=== PATIENT | male | born 1945 | race Caucasian/White ===

== ENCOUNTER → 2018-05-12 10:45 | Outpatient (CLI) | payer OTHER, SELFPAY ==
--- NOTE | 2018-05-12 14:54 | P.PCN_ITS ---
Cardiac Stress Test Report Referral & Results Date Patient Seen: 05/12/18 Requesting provider: Aydee Ibrahim Indication: Atrial fibrillation Rest ECG: Unremarkable, sinus rhythm Procedure Note: After both written and verbal informed consent the patient had an IV started by the diagnostic imaging RN and then was hooked up to the treadmill monitoring system. The patient was placed on the treadmill at 1 mile an hour with no elevation and was then injected with the Zabrina scan material. The Cardiolite was then immediately administered. The patient spent an additional 2-3 minutes on the treadmill before being returned to the [facility] in the supine position. The patient had a normal response to all infused materials. Patient had some mild chest tightness and dyspnea with the infusion of Lexiscan material that improved slightly before the end of the procedure Patient did achieve a near target heart rate despite minimal activity. There are no ST-T segment changes. No dysrhythmias patient remained in a sinus rhythm throughout Impression: No evidence of ischemia Normal response to infuse materials Perfusion imaging to be reported separately Please note: Actual ECG tracings can be found in the PACS system.
--- NOTE | 2018-05-14 09:09 | DI.NM.S_ITS ---
DATE OF SERVICE: 05/12/2018 PROCEDURE: Pharmacologic perfusion study. INDICATIONS: Atrial fibrillation with underlying coronary artery disease. RADIOPHARMACEUTICAL: 25.3 mCi of technetium-99 Myoview IV was injected at stress, and 12.5 mCi of technetium-99 Myoview IV was injected at rest. It was 1 - day protocol. CARDIAC STRESS: The patient underwent IV Lexiscan perfusion study as per standard protocol. The patient remained hemodynamically stable. [place] some chest tightness during Lexiscan injection. Baseline EKG revealed narrow QRS tachycardia and rate about 114. Does not appear to be atrial fibrillation or atrial flutter. Likely SVT. During stress, there was no obvious convincing ischemic changes. There were no new significant arrhythmias. RAW DATA: There is an increase of diaphragmatic activity and increased soft tissue shadow near basal inferolateral wall. GATED STUDY: Resting LV ejection fraction was 48%, and stress LV ejection fraction was 54%. During stress, I don't see any obvious wall motion abnormalities. No transient ischemic dilatation. TID ratio is 0.83, which is within normal limits. Resting end-diastolic volume 125 mL. Lung/heart ratio is 0.26, which is within normal limits. MYOCARDIAL PERFUSION: Stress supine images revealed small sized mildly decreased perfusion of the distal anterior wall as well as small size severely decreased perfusion of basal inferolateral wall. During resting supine, there was moderate sized moderate to severely decreased perfusion of the basal inferolateral wall extending in to the base to mid inferior wall as well as distal anterior wall. During prone images, the majority of the perfusion defect got improved, except basal inferolateral wall defect, which remained there. No obvious reversible ischemia. CONCLUSION: 1. No obvious reversible ischemia. 2. The patient has predominantly small sized severe perfusion defect involving the basal inferolateral wall. During stress gating, the wall is moving well. There was soft tissue shadow seen near the basal inferolateral border of the heart. There is a possibility of persistent tissue attenuation artifact; however, one cannot rule out the possibility of small basal inferolateral infarction. Clinical correlation is recommended. TITUS CONTRERAS - [employer]ERCIAL [employer]ER/fn/ts doc#: [id number]/job#: [id number] dd: 05/13/2018 12:19:00 dt: 05/14/2018 08:52:00 DICTATING MD/COPIES TO: Dari Smith MD COPIES MNE: MIRIAN
== END ==
PROVIDERS: PCP Family Medicine Geriatric Medicine; Visit Provider Family Medicine Geriatric Medicine
DX: I48.0 Paroxysmal atrial fibrillation (principal)
CPT/HCPCS: 78452; 93016; 93017; 93018; A9502; J2785

== ENCOUNTER → 2018-09-01 20:18 | Outpatient (REF) | payer OTHER, SELFPAY ==
[2018-09-01 20:42] LABS: Add Manual Diff / Slide Review NO; Basophils Absolute Auto 0 /uL (0-100); Basophils Percent Auto 0.5 % (0-2); Eosinophils Absolute Auto 300 /uL (0-450); Eosinophils Percent Auto 2.8 % (2-4); Hematocrit 36.1 % (41-53); Hemoglobin 11.8 g/dL (13.5-17.5); Lymphocytes Absolute Auto 1000 /uL (1100-4500); Lymphocytes Percent Auto 10.6 % (25-40); Mean Corpuscular HGB Conc 32.8 % (30-36); Mean Corpuscular Hemoglobin 31.2 PG (26-34); Monocytes Absolute Auto 800 /uL (0-900); Monocytes Percent Auto 8.5 % (3-14); Neutrophils Absolute Auto 7400 /uL (1500-7000); Neutrophils Percent Auto 77.6 % (50-75); Platelet Count 261 X10^3/uL (150-400); Red Cell Distribution Width 14.1 % (11.6-14.8); White Blood Cell Count 9.5 X10^3/uL (4.5-11.0)
[2018-09-01 20:55] LABS: Hemoglobin A1C% w Est Avg Glu 6.4 % (4.0-6.0)
[2018-09-01 21:10] LABS: Alanine Aminotransferase 29 IU/L (21-72); Albumin 4.1 g/dL (3.5-5.0); Alkaline Phosphatase 79 U/L (38-126); Aspartate Aminotransferase 19 IU/L (17-59); Bilirubin Total 0.4 mg/dL (0.2-1.3); Blood Urea Nitrogen 25 mg/dL (9-20); Calcium 9.5 mg/dL (8.4-10.2); Carbon Dioxide 26 mmol/L (22-32); Chloride 101 mmol/L (98-107); Cholesterol 101 mg/dL (140-199); Estimated Glomerular Filt Rate > 60.0 mL/min (>60); Globulin 2.1 g/dL (1.7-4.1); Glucose 147 mg/dL (80-110); HDL Cholesterol 45 mg/dL (40-60); HEMOLYSIS < 15 (0-50); LDL Cholesterol Calculated 38 mg/dL (<100); Potassium 4.8 mmol/L (3.4-5.1); Sodium 138 mmol/L (137-145); Total Protein 6.2 g/dL (6.3-8.2); Triglycerides 88 mg/dL (35-150)
[2018-09-01 21:40] LABS: Prostate Specific Antigen 3.81 ng/mL (0.10-4.00)
[2018-09-05 17:04] LABS: Thyroid Stimulating Hormone 3.98 uIU/mL (0.47-4.68)
== END ==
LOC: LAB 20:18
PROVIDERS: PCP Family Medicine Geriatric Medicine; Visit Provider Family Medicine Geriatric Medicine
DX: E11.9 Type 2 diabetes mellitus without complications (principal); D40.0 Neoplasm of uncertain behavior of prostate; I48.0 Paroxysmal atrial fibrillation; E78.5 Hyperlipidemia, unspecified
CPT/HCPCS: 36415; 80053; 80061; 83036; 84153; 84443; 85025

== ENCOUNTER → 2018-09-05 20:51 | Outpatient (REF) | payer OTHER, SELFPAY ==
[2018-09-06 01:23] LABS: Microalbumin Urine Random 4.9 mg/dL (0-1.6)
[2018-09-06 02:36] LABS: Creatinine Urine Random 369.3 mg/dL; Microalbumi Creatinin Ratio Ur 13.2 ug/mg CR (<30)
[2018-09-07 17:26] LABS: Chromium, Plasma 0.2 mcg/L (< 1.3)
== END ==
LOC: LAB 20:51
PROVIDERS: PCP Family Medicine Geriatric Medicine; Visit Provider Family Medicine Geriatric Medicine
DX: E11.9 Type 2 diabetes mellitus without complications (principal); Z77.018 Contact with and (suspected) exposure to other hazardous metals
CPT/HCPCS: 36415; 82043; 82495; 82570; 83018

== ENCOUNTER → 2020-12-18 09:52 | Outpatient (CLI) | payer MEDICARE, SELFPAY ==
--- NOTE | 2020-12-18 | DI.NM.S_ITS ---
PROCEDURE: NM CRISTELA PERF SPECT R&S PHARM Rest and pharmacological stress myocardial perfusion SPECT with gated imaging and ejection fraction RADIOPHARMACEUTICAL: 11.4 mCi Tc-99m tetrafosmin IV at rest and 25.3 mCi Tc-99m tetrafosmin IV at peak effect of pharmacological stress. [id number] was performed. INDICATIONS: Unspecified atrial fibrillation TECHNIQUE: Radiopharmaceutical was injected at peak stress test, and also at rest. SPECT images were obtained. SPECT myocardial perfusion images were displayed in short axis, horizontal long axis, and vertical long axis views. Gated images were reviewed using [employer] software. COMPARISON: None. CARDIAC STRESS: A pharmacologic stress test was performed under the supervision of an attending staff, using an infusion of lexiscan 0.4mg IV X1. Hemodynamic data: There is normal blood pressure and heart rate response to pharmacologic stress. Symptoms: The patient developed chest pain with lexiscan. Aminophylline: none EKG: Mild downsloping depressions in the inferior and anterolateral leads that could be due to the non-specific ST changes at rest. FINDINGS: Raw data: There is good myocardial uptake of radiotracer. No significant motion artifacts. [id number]-[id number] ratio is 0.37 (normal is less than 0.38 for tetrafosmin tracer). Left ventricle function: Gated images demonstrate normal left ventricular wall thickening. No segmental wall motion abnormalities. No transient ischemic dilation; TID is 1.03 (normal less than 1.3). Left ventricle resting end diastolic volume is 166 mL. Left ventricle stress ejection fraction is 65%; normal range is above 45%. Myocardial perfusion: There is a fixed basal inferolateral defect that persists with prone imaging, suggesting prior infarct. No ischemia. IMPRESSION: Abnormal pharmaceutical nuclear stress test consistent with prior infarction. No ischemia. 1) There is a fixed basal inferolateral defect that persists with prone imaging, suggesting prior infarct. No ischemia. 2) Normal left ventricular size, wall motion, and systolic function (EF post stress 65%). 3) Mild downsloping depressions in the inferior and anterolateral leads that could be due to the non-specific ST changes at rest. 4) Non diagnostic chest pain with lexiscan. 5) Compared to the nuclear stress test done 05/12/2018, no significant change in perfusion images. Dictated by: Alyx Giles MD on 12/18/2020 at 16:59 Approved by: Alyx Giles MD on 12/18/2020 at 17:04
== END ==
PROVIDERS: PCP Family Medicine; Referring Provider Internal Medicine Cardiovascular Disease; Visit Provider Internal Medicine Cardiovascular Disease
DX: I48.91 Unspecified atrial fibrillation (principal); R94.39 Abnormal result of other cardiovascular function study
CPT/HCPCS: 78452; 93017; A9502; J2785